=== PATIENT | female | born 1965 | race Caucasian/White ===

== ENCOUNTER → 2017-01-21 | Day surgery (SDC) | payer OTHER ==
[~2017-01-21] MED LIST: DAILY MULTIPLE1 EACH PO; OXYCODONE HCL10 M2 PO; PREDNISONE20 M1 PO
--- NOTE | 2017-01-21 14:29 | Operative Report ---
Operative/Inv Procedure Report Surgery Date: 01/21/17 Name of Procedure: Excision of malignant neoplasm skin and subcutaneous tissues tissue and fascia, 4 cm diameter, right shoulder Complex closure, 12 cm Pre-Operative Diagnosis: Metastatic small cell carcinoma Post-Operative Diagnosis: Same Estimated Blood Loss: scant Surgeon/Tobacco Stripping Machine Operator: LUIS MANUEL RAMOS MD Anesthesia: local monitored anesthesi Specimens: 4 x 12 cm ellipse of skin Operative/Procedure Note Note: After consent she is brought to the operating room laid supine. Sedation was obtained and her right shoulder was prepped and draped. There was a 2.5 cm mass. Margins were measured in the excised diameter was 4 cm's. Oriented a 4 x 12 cm ellipse in the sagittal plane. The skin and subcutaneous tissues around the resection area was infiltrated with a cocktail local anesthesia. Incision was made sharply. Care the dissection down to the fascia. Below the tumor there was invasion of the fascia so and deep portion of it was taken. The mass and tissues were then passed off the field en bloc. Wound was irrigated with saline and hemostasis achieved with cautery. In order to perform closure we had to create bilateral local advancement flaps. Dissection was carried forth with sharp and cautery dissection on both sides of the wound to elevate the skin and allow midline closure. Once this was accomplished we closed the incision with interrupted 3-0 Vicryl sutures to reapproximate the skin and then a second layer was used with 4-0 Vicryl subcuticular. Steri-Strips and sterile dressing applied. Sponge and needle counts are correct CC: REGINALD PHELPS DO; ANN LEYVA,[facility]
== END ==
LOC: STS 01:09
DX: C79.2 Secondary malignant neoplasm of skin (principal); Z85.118 Personal history of other malignant neoplasm of bronchus and lung; Z87.891 Personal history of nicotine dependence
CPT/HCPCS: 88307; J0131; J0690; J2250